=== PATIENT | male | born 1980 | race Caucasian/White ===

== ENCOUNTER 2020-12-15 16:03 | Emergency (ER) | payer MEDICAID, SELFPAY ==
[2020-12-15 16:04] VITALS: BP 115/91; PULSE 147; RESP 18; TEMP 36.9; O2SAT 94; BMI 26.5
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
[2020-12-15 16:55] LABS: Absolute Lymphocyte Count 1.52 X10^3/uL (0.83-4.51); Absolute Neutrophil Count 5.7 X10^3/uL (2.0-7.7); Basophil# 0.04 X10^3/uL; Basophil% 0.5 % (0-1); Eosinophil# 0.11 X10^3/uL; Eosinophils% 1.4 % (0-5); Hematocrit 43.9 % (40-54); Lymphocyte # 1.52 X10^3/ul (0.83-4.51); Lymphocyte % 18.7 % (19-41); Mean Corp Hgb Conc 34.2 g/dL (32-36); Mean Corpuscular Hgb 30.5 pg (27.0-32.0); Mean Corpuscular Volume 89.4 fL (80-94); Mean Platelet Vol. 8.4 fl (6.2-12.0); Monocyte# 0.77 X10^3/uL; Monocyte% 9.5 % (0-10); NRBC Flagged by Analyzer 0 % (0-5); Neutrophil # 5.65 X10^3/uL (2.7-7.7); Neutrophil % 69.5 % (47-70); Platelet Count 369 K/mm3 (150-450); RBC Distribution Width CV 11.9 % (11.6-14.6); RBC Distribution Width SD 38.6 fl (35.1-43.9); Red Blood Count 4.91 M/mm3 (4.6-6.2); White Blood Count 8.1 K/mm3 (4.4-11.0)
[2020-12-15 17:13] LABS: Anion Gap 9 (5-15); BUN 19 mg/dL (7-18); BUN/Creat Ratio 16.4 RATIO (10-20); Calcium,Total 9.8 mg/dL (8.5-10.1); Chloride 101 mmol/L (98-107); Creatinine, Serum 1.16 mg/dL (0.70-1.30); EST Glomerular Filtration Rate 74 mL/min (>60); Est Glom Filt Rate - Afr Amer 89 mL/min (>60); Estimated Creatinine Clearance 86.53 ml/min; Glucose 90 mg/dL (74-106); Sodium Level 137 mmol/L (136-145)
[2020-12-15 17:39] LABS: Alcohol, Blood (Medical)-Serum < 3.0 mg/dL
[2020-12-15 17:56] VITALS: RESP 16
[2020-12-15 18:55] VITALS: BP 167/106; PULSE 123; RESP 16; O2SAT 98
[2020-12-15 20:55] VITALS: RESP 16
--- NOTE | 2020-12-15 20:56 | ED.RN ---
Patient is back in room with his gown on and belongings are bagged and labeled. HE is willing to take a warm blanket and continues to share the pictures of the leaves, explaining he sees men. He states they do not scare him and he has heard them talk and tried to talk to them but they don not answer him. He is anxious, and has not slept in at least 3 days. HE is declining medication to help anxiety and nerves. Declines warm milk but took the warm blankets and dim lit room. He refuses to go to the bathroom for a urine sample and with the event of him trying to leave, we will wait for him to calm down to try for a urine again, Dr Morrow is agreeable.
[2020-12-15 21:23] VITALS: BP 156/74; PULSE 90; RESP 18; TEMP 36.6; O2SAT 97
--- NOTE | 2020-12-15 22:30 | ED.RN ---
GAVE PATIENT SLIPPER SOCKS FOR HIM TO USE RESTROOM. INFORMED PT THAT WE NEEDED A SAMPLE, HE REFUSED. PT EDUCATED ON WHY WE NEEDED A SAMPLE, HE CONTINUED TO REFUSE. PT STATED HE GAVE HIS BLOOD AND THAT SHOULD BE ENOUGH, PLUS THAT GIRL SAID IT WOULD BE OKAY TO NOT GIVE A SAMPLE AND I WOULD STILL BE PLACED.
[2020-12-15 23:22] VITALS: PULSE 76; RESP 16; O2SAT 97
[2020-12-16] VITALS (13 sets, daily range): BP systolic 128–159; BP diastolic 71–97; PULSE 96–125; RESP 14–19; TEMP 36.4–37.1; O2SAT 94–99
[2020-12-16 02:27] LABS: Amphetamine Urine VISTA NEGATIVE (<1000 ng/mL); Barbiturate Urine VISTA NEGATIVE (< 200 ng/mL); Benzodiazepine Urine VISTA NEGATIVE (< 200 ng/mL); Cocaine Urine VISTA NEGATIVE (< 300 ng/mL); Ecstacy Urine VISTA POSITIVE (< 500 ng/mL); Methadone Urine VISTA NEGATIVE (< 300 ng/mL); PCP Urine VISTA NEGATIVE (< 25 ng/mL); THC Urine VISTA NEGATIVE (< 50 ng/mL); Vista UDS pH Range 5
--- NOTE | 2020-12-16 08:48 | ED.RN ---
PER MARIALUISA WITH CRISIS, PT WAS REFERRED THIS AM TO [facility] WHO STATED THEY HAVE NO BEDS. SHE IS WAITING ON A CALL FROM [facility] WHO IS SUPPOSE TO NOTIFY HER AT 0900
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
--- NOTE | 2020-12-16 15:03 | NURSING ---
JOHN PRESTON WITH CRISIS; PENDED [facility] AND WILL TRY [facility] AGAIN THIS AFTERNOON
--- NOTE | 2020-12-16 18:26 | ED.RN ---
JOHN RAZO WITH CRISIS REFERED TO [facility]
--- NOTE | 2020-12-16 22:27 | EKG12_ITS ---
Test Reason : [facility] Blood Pressure : / mmHG Vent. Rate : 072 BPM Atrial Rate : 072 BPM P-R Int : 158 ms QRS Dur : 092 ms QT Int : 384 ms P-R-T Axes : 045 020 050 degrees QTc Int : 420 ms Normal sinus rhythm Normal ECG No previous ECGs available Confirmed by BEN BEEBE, REGINALDO ([id number]), editor department LYNN SANDOVAL ([id number]) on 12/20/2020 11:33:04 AM Referred By: ABDIRAHMAN Confirmed By:REGINALDO CONTRERAS MD
[2020-12-16 23:03] LABS: AST(SGOT) 91 U/L (15-37); Alanine Aminotransfer ALT/SGPT 109 U/L (16-61); Albumin, Serum 4.2 g/dL (3.2-5.0); Alkaline Phosphatase 81 U/L (45-117); Bilirubin, Direct 0.28 mg/dL (0.00-0.30); Globulin 3.9 g/dL (2.2-4.2); Protein, Total 8.1 g/dL (6.4-8.2)
[2020-12-17] VITALS (19 sets, daily range): BP systolic 106–147; BP diastolic 76–88; PULSE 80–99; RESP 12–18; O2SAT 97–98
[2020-12-17] MEDS: Ziprasidone IM 20 MG/ML VIAL IM (13:43)
--- NOTE | 2020-12-17 13:46 | ED.RN ---
Patient becoming anxious and restless over being here for so long. Pt keeps stating this place feels like prisonpt requesting nicotine patch and something to help me sleep Dr Dixon notified.
--- NOTE | 2020-12-17 14:05 | CM.ED ---
SW Note LUISA called [facility] and spoke to Kristi. No update on patient's placement at [facility]. Kristi said that numerous Crisis staff members have called and spoken to him and advised that it is a work in progress. Staff updated. Plan: [facility] for psych placement Iliana Shields
--- NOTE | 2020-12-17 20:04 | CM.ED ---
LUISA Note SW received call from Elif at Crisis. She made referral to [facility]. She will update this service writer advisor. LUISA received voice mail from Elif at Crisis. [facility] declined patients admission to their program. Plan: Inpatient psych Iliana BAEZ
[2020-12-18] VITALS (11 sets, daily range): BP systolic 118; BP diastolic 76; PULSE 94; RESP 14–16; O2SAT 97
--- NOTE | 2020-12-18 00:15 | ED.RN ---
patient asking not to be bothered in the middle of the night for vital signs patient wants to get a good night of sleep
--- NOTE | 2020-12-18 04:40 | ED.RN ---
PLEASE SEE COMPUTER DOWN TIME CHARTING FROM [phone]
--- NOTE | 2020-12-18 11:53 | CM.ED ---
LUISA Note LUISA called Elif at [facility] ([facility]). Elif said that they have been calling for patient this morning but it would be helpful to call [facility] for availability of psych beds. LUISA called [facility] inpatient psych. They have no beds. LUISA received call from Elif at [facility]. [facility] has beds and review patient. LUISA received call from Elif at [facility]. [facility] was sent the information and then reported they had no beds. Elif reports that [facility] has beds so she will call after 3pm today to inquire about hospitalization of patient. Plan: Inpatient psych hospitalization. Iliana BAEZ
--- NOTE | 2020-12-18 16:44 | NURSING ---
NATAL[facility], CRISIS, HERE FOR PATIENT
== END 2020-12-18 17:19 | disposition home or self-care (01) ==
PROVIDERS: Emergency Provider Emergency Medicine
DX: F20.3 Undifferentiated schizophrenia (principal); F17.200 Nicotine dependence, unspecified, uncomplicated
CPT/HCPCS: 36415; 80048; 80076; 80307; 82077; 85025; 87426; 93005; 96372; 99284; J3486

== ENCOUNTER 2021-08-18 22:31 | Emergency (ER) | payer MEDICAID, SELFPAY ==
[2021-08-18 22:32] VITALS: BP 120/81; PULSE 103; RESP 20; TEMP 36.3; O2SAT 97; BMI 21.1
--- NOTE | 2021-08-18 22:51 | EX.ED.DYSGE1 ---
HPI History of Present Illness Chief Complaint: Laceration Narrative Narrative: Patient is a 40-year-old male who states that he was using a metal chisel to try and pry batteries out of the battery pack. He states that the chisel slipped and struck him in the left hand/wrist. He states this occurred about 30 minutes prior to arrival. He denies any numbness tingling weakness. He denies any bleeding disorder history of blood thinner use. He reports his tetanus status was updated approximately 3 weeks ago. He states he is concerned he may need sutures because of the injury and secondary to this comes in for evaluation. [facility] Medical History (Updated 08/18/21 @ 22:55 by Kelsea García) Glaucoma Hepatitis C Allergy/AdvReac Type Severity Reaction Status Date / Time No Known Allergies Allergy Verified 08/18/21 22:34 Social History Smoking Status: Current every day smoker tobacco type: cigarettes and cigars ROS ROS ED Constitutional Constitutional ED: Denies chills or fever(s) ENT ENT ED: Denies sore throat Cardiovascular Cardiovascular: Denies chest pain Respiratory/Chest Respiratory/Chest: Denies cough or dyspnea Gastrointestinal Gastrointestinal: Denies abdominal pain, diarrhea, nausea or vomiting Genitourinary Genitourinary ED: Denies dysuria Musculoskeletal Musculoskeletal: Reports other Details: Positive left hand pain ; Denies myalgias Integumentary Reports other Details: Positive left hand laceration ; Denies rash Neurologic Neurologic: Denies headache(s) Hematologic/Lymphatic Hematologic/Lymphatic: Denies easy bleeding or easy bruising EXAM Physical Exam Const Vital Signs: 08/18/21 22:32 Temperature 97.3 F L Temperature Source Temporal Pulse Rate 103 H Respiratory Rate 20 H Blood Pressure 120/81 H Blood Pressure Mean 94 Pulse Ox 97 Oxygen Delivery Method Room Air Positive well nourished and well developed General Appearance ED: well developed Eyes PERRL and EOMs intact bilaterally Neck supple Resp normal respiratory effort and clear to auscultation bilaterally Cardio regular rate and regular rhythm Extremity Extremity Narrative: Left upper extremity is neurovascularly intact. 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 AIN/PIN are intact and normal. Patient has full active range of motion. There is a linear 1.5 cm laceration to the hyperthenar eminence region with no active bleeding or foreign body noted. No ligamentous or tendon injury noted. The wound is subcutaneous layer deep. Remainder the exam is normal Neuro oriented x3 and CN's II-XII intact bilaterally Sensorium / Orientation: alert Motor Exam: strength 5/5 throughout Psych mental status grossly normal Skin Skin Narrative: Laceration to the left hand as documented above MDM MDM MDM Narrative Medical decision making narrative: Patient presented to the ER with a simple laceration to his left hand. He has no signs of arterial injury no foreign body and no signs of ligamentous or tendon injury so I felt no need for imaging or laboratory studies. Patient reported his tetanus was updated approximately 3 weeks ago so there is no need to do this either. Therefore this time patient just needs the wound closed as documented below and is otherwise safe for discharge Patient had his wound cleaned with chlorhexidine. It was anesthetized with 6 mL of 2 percent lidocaine with epinephrine in local fashion. The wound was copiously irrigated with normal saline. The wound was closed with six 4-0 Ethilon sutures in simple erupted fashion. This brought the wound together good approximation. Patient tolerated procedure well without complication. Discharge Plan Triage Chief Complaint: Laceration ED Provider: Chilo Wang Dx/Rx/DC Orders Clinical Impression: Laceration of left hand Instructions: ED Laceration, Hand: All Closures Primary Care Provider: Surendra Carlton Referrals: Surendra Carlton MD [Primary Care Provider] - Activity Restrictions/Additional Instructions: Please follow-up with your family doctor or return to ER in 7 to 10 days for suture removal Disposition Disposition: Home, Self Care
[2021-08-18] MEDS: Lidocaine 2% /Epi 1:100 (20ml) 20 ML VIAL INFILT (23:30)
== END 2021-08-18 23:44 | disposition home or self-care (01) ==
PROVIDERS: Emergency Provider Emergency Medicine; PCP Internal Medicine; Visit Provider Emergency Medicine
DX: S61.412A Laceration without foreign body of left hand, initial encounter (principal); W27.0XXA Contact with workbench tool, initial encounter; Y93.89 Activity, other specified; F17.210 Nicotine dependence, cigarettes, uncomplicated; F17.290 Nicotine dependence, other tobacco product, uncomplicated
CPT/HCPCS: 12001; 99283

== ENCOUNTER → 2022-01-26 | Outpatient (CLI) | payer MEDICAID, SELFPAY ==
[2022-01-26 15:42] LABS: Amphetamine Urine VISTA POSITIVE (<1000 ng/mL); Barbiturate Urine VISTA NEGATIVE (< 200 ng/mL); Benzodiazepine Urine VISTA NEGATIVE (< 200 ng/mL); Cocaine Urine VISTA NEGATIVE (< 300 ng/mL); Ecstacy Urine VISTA NEGATIVE (< 500 ng/mL); Methadone Urine VISTA NEGATIVE (< 300 ng/mL); PCP Urine VISTA NEGATIVE (< 25 ng/mL); THC Urine VISTA POSITIVE (< 50 ng/mL); Vista UDS pH Range 7
[2022-01-26 21:26] LABS: BUP Internal Control LINE = VALID (VALID); Buprenorphine Drug Screen Positive (<10 ng/mL)
== END | disposition home or self-care (01) ==
PROVIDERS: PCP Internal Medicine
DX: F11.20 Opioid dependence, uncomplicated (principal)
CPT/HCPCS: 80307